=== PATIENT | male | born 1965 | race Hispanic/Latino ===

== ENCOUNTER 2017-08-06 12:32 | Emergency (ER) | payer MEDICARE ==
[~2017-08-06 12:32] MED LIST: ACET1TAB25 PO; ALBUHFA IH; BIFI10.5 PO; BUDE10.2 IH; CELE200 PO; CLON1TAB5 PO; DIPH25 PO; ESOM40CA54 PO; GABA-318 PO; HYDR200T4 PO; LISI-613 PO; LURA20TA PO; MOME17N EN; MOME17N NS; MONT10TA24 PO; NYST15CR TP; SILD50TA PO; SUCR1TAB2 PO; TRAZ-221 PO; ZOLP10TA6 PO
[2017-08-06] MEDS ORDERED: SODIUM CHLORIDE 0.9% 1000ML 1,000 ML IV ONE (13:17)
[2017-08-06 13:33] LABS: BASOPHILS % (AUTO) 1.2 % (0.0-5.0); EOSINOPHILS % (AUTO) 0.5 % (0.0-8.0); HEMATOCRIT 35.1 % (42-54); LYMPHOCYTES % (AUTO) 27.4 % (21.0-51.0); MEAN CORPUSCULAR HEMOGLOBIN 34.6 pg (27.0-33.0); MEAN CORPUSCULAR HGB CONC 35.3 g/dL (32.0-36.0); MEAN CORPUSCULAR VOLUME 98.1 fL (79-99); MONOCYTES % (AUTO) 10.8 % (3.0-13.0); NEUTROPHILS % (AUTO) 60.1 % (40.0-77.0); PLATELET COUNT (AUTO) 128 K/uL (130-400); RED BLOOD CELL COUNT(AUTO) 3.57 MIL/uL (4.50-6.20); RED CELL DISTRIBUTION WIDTH 12.9 % (11.0-15.5); WHITE BLOOD COUNT (AUTO) 4.7 K/uL (4.8-10.8)
[2017-08-06 13:42] LABS: CREATININE 0.7 mg/dL (0.5-1.5)
[2017-08-06 13:46] LABS: ALBUMIN 3.4 g/dL (3.5-5.0); BILIRUBIN,TOTAL 0.3 mg/dL (0.2-1.0); TOTAL PROTEIN, SERUM 6.2 g/dL (6.0-8.3)
[2017-08-06] MEDS ORDERED: ASPIRIN 325 MG TABLET ONE (14:24)
== END 2017-08-06 15:02 | disposition home or self-care (01) ==
LOC: EDH 12:32
DX: E86.0 Dehydration (principal); R20.2 Paresthesia of skin; K21.9 Gastro-esophageal reflux disease without esophagitis; I10 Essential (primary) hypertension; F43.10 Post-traumatic stress disorder, unspecified; E11.9 Type 2 diabetes mellitus without complications; Z79.4 Long term (current) use of insulin; Z88.8 Allergy status to other drugs, medicaments and biological substances; Z72.0 Tobacco use
CPT/HCPCS: 36415; 70450; 71045; 80053; 82550; 84484; 85025; 93005; 94761; 96360; 96361; 99285; J7030